=== PATIENT | female | born 1985 | race Caucasian/White ===

== ENCOUNTER 2016-06-26 12:50 | Emergency (ER) | payer BC ==
[~2016-06-26] VITALS: Ht 160 cm; Wt 61.0 kg
[~2016-06-26 12:50] MED LIST: BCPILLS PO
[2016-06-26 12:53] VITALS: TEMP 36.9; Ht 160 cm; Wt 61.0 kg
[2016-06-26] MEDS ORDERED: ALPR-412 PO (13:05)
[2016-06-26] MEDS ORDERED: PROPARACAINE HCL 0.5% OP SOLN 15 ML BTL OP STA (13:43)
[2016-06-26] MEDS ORDERED: IBUPROFEN 800 MG TAB PO STA (14:20)
[2016-06-26] MEDS ORDERED: CIPROFLOXACIN HCL 0.3% OP SOLN 2.5 ML BTL OP ONE (14:30)
[2016-06-26] MEDS ORDERED: HYDR-5688 PO (14:48)
--- NOTE | 2016-06-26 14:49 | EMERGENCY ROOM VISIT NOTE ---
ED Visit Note First contact with patient: 13:32 CHIEF COMPLAINT: Eye pain HISTORY OF PRESENT ILLNESS: This 30-year-old female patient presents to the emergency department ambulatory complaining of pain in the left eye. The patient reports that yesterday, she noticed some blurred vision in the left eye. She states that she took her contacts out but did not have any improvement in the symptoms. She slept in her contacts last night and states that she noticed pain in the eye today. She rates the discomfort a 3/10. She states that she has a blurry sensation in the left eye. Tetanus shot is up to date. She denies any headaches. REVIEW OF SYSTEMS: A 6 system review of systems was completed with positives and pertinent negatives listed in the HPI. ALLERGIES: Penicillins MEDICATIONS: Breath control pills, alprazolam PMH: No significant past medical history. SOCIAL HISTORY: The patient lives locally with family. PHYSICAL EXAM: Vital Signs: Reviewed Nurse's notes, vital signs stable. Visual acuity 20/20 right eye, 20/50 left eye without correction. GENERAL: This is a 30-year-old female, in no acute distress, but who is uncomfortable from the eye problem. Well-developed well-nourished. EYES: The pupils are equal round and reactive to light and accommodation. EOMs are full and without tenderness. There is discharge of clear tears from the left eye which is injected. There is no foreign body visible under the eyelid even after lid eversion. Funduscopic exam reveals no hemorrhages, papilledema, or other abnormalities. No foreign body was seen embedded in the cornea under slit lamp exam. There is a circular area of fluorescein uptake over the pupil. EMERGENCY DEPARTMENT COURSE: I examined the patient. Alcaine 2 drops were placed in the patient's left eye. A slit lamp exam was performed as above. The patient's exam is concerning for a corneal ulcer. I discussed the patient with Dr. Farooq, who recommended placing her on Ciloxan drops and having her follow-up this week. Ciloxan two drops was placed in the patient's left eye. She was given a prescription for [place] for pain. The [place] prescription drug monitoring program was queried and no red flags were identified. She verbalized her understanding of my assessment and treatment plan. The patient was discharged home in good condition. DIAGNOSIS: Corneal ulcer of the left eye Current/Historical Medications Scheduled Control Pills ( Control Pills), 1 TAB PO DAILY Scheduled PRN Alprazolam (Alprazolam), 1 TAB PO DAILY PRN for PRN Hydrocodone/Acetaminophen 5MG/325MG ([place] 5MG/325MG), 1-2 TABLET PO Q4H PRN for Pain Allergies Coded Allergies: Penicillins (Unverified Allergy, Mild, HIVES, 06/06/09) Vital Signs Date Time Temp Pulse Resp B/P Pulse Ox O2 Delivery O2 Flow Rate FiO2 06/26/16 15:00 81 14 123/71 100 06/26/16 12:53 36.9 78 16 139/95 96 Room Air Medications Administered Medications (Trade) Dose Ordered Sig/Collette Route Start Time Stop Time Status Last Admin Dose Admin Ibuprofen (Motrin Tab) 800 mg NOW STAT PO 06/26/16 14:20 06/26/16 14:21 DC 06/26/16 14:25 800 MG Ciprofloxacin HCl (Ciprofloxacin 0.3% Op Soln) 1 drops NOW ONCE OP 06/26/16 14:30 06/26/16 14:31 DC 06/26/16 14:29 1 DROPS Departure Information Impression Primary Impression: Corneal ulcer Dispostion Home / Self-Care Condition GOOD Prescriptions Hydrocodone/Acetaminophen 5MG/325MG ([place] 5MG/325MG) Tab 1-2 TABLET PO Q4H Y for Pain, #12 TAB For Initial Treatment Prov: Lashell Erwin PA-C 06/26/16 Referrals No Doctor, Assigned (PCP) Crescencio Farooq M.D. Patient Instructions My [facility] Additional Instructions You have been prescribed Ciloxan eye drops. This is an antibiotic drop. You should use 2 drops in the affected eye every 2 hours while awake until further instructed by ophthalmology. You have been prescribed [place] to be used for pain control. Take 1-2 tablets every 4-6 hours as needed for pain. This is a narcotic medication. You cannot drive or consume alcohol while on this medicine. This medicine should only be used for pain that cannot be controlled with [id number] pain medicines. Call your established patient account representative/neurology tech Tuesday to schedule follow-up. You should have an exam by them on Tuesday. Return to the emergency department with worsening pain, further vision changes, drainage from the eye, or any other new/concerning symptoms. Problem Qualifiers Primary Impression: Corneal ulcer Laterality: left Qualified Codes: H16.002 - Unspecified corneal ulcer, left eye
[2016-06-26 15:00] VITALS: BP 123/71; PULSE 81; O2SAT 100
== END 2016-06-26 15:03 | disposition home or self-care (01) ==
LOC: C.EDB 12:52 → C.EDD 15:03
DX: H16.002 Unspecified corneal ulcer, left eye (principal); Z79.3 Long term (current) use of hormonal contraceptives